=== PATIENT | male | born 1980 | race Asian ===

== ENCOUNTER → 2017-05-06 | Outpatient (CLI) | payer OTHER | LOC: COL.PUL 09:40 → EDBD 10:00 | DX: R06.02 Shortness of breath (principal) | CPT/HCPCS: J7674 ==

== ENCOUNTER → 2017-06-13 | Outpatient (CLI) | payer OTHER | LOC: COL.PUL 11:10 | DX: R06.02 Shortness of breath (principal) ==

== ENCOUNTER → 2017-07-30 | Outpatient (CLI) | payer OTHER | LOC: COL.VAS 07-29 09:45 | DX: I36.1 Nonrheumatic tricuspid (valve) insufficiency (principal); I37.1 Nonrheumatic pulmonary valve insufficiency ==